=== PATIENT | female | born 1940 | race Caucasian/White ===

== ENCOUNTER 2018-03-31 21:49 | Emergency (ER) | payer MEDICARE, OTHER ==
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
[2018-03-31] MEDS ORDERED: HYDROcodone/Acetaminophen 5/325 mg Tablet ONE (23:54)
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
== END 2018-04-01 00:03 | disposition home or self-care (01) ==
LOC: ERS 21:49
DX: M54.6 Pain in thoracic spine (principal); I10 Essential (primary) hypertension; F41.9 Anxiety disorder, unspecified; F17.220 Nicotine dependence, chewing tobacco, uncomplicated; Y04.8XXA Assault by other bodily force, initial encounter
CPT/HCPCS: 70450; 72125; 72128; 72131

== ENCOUNTER 2018-11-09 17:13 | Observation (INO) | payer MEDICARE, OTHER ==
--- NOTE | 2018-11-09 18:36 | CT ---
Exam: Head CT without contrast HISTORY: Syncope COMPARISON: 03/31/2018 FINDINGS: Hemorrhage: No intraparenchymal hemorrhage or extra-axial hematoma. Brain parenchyma: Cortical smith-white matter differentiation is preserved. No mass effect or midline shift. Basilar cisterns are patent. Brain volume, age-appropriate. Chronic small vessel ischemic changes of the white matter are noted. Remote lacunar infarct in the anterior left scanlon radiata. Stable lucia cisterna magna Ventricular system: Ventricles and sulci are patent and symmetric. Calvarium: Intact. Sinuses and mastoid air cells: Bilateral sphenoid sinus disease. Adequate mastoid aeration. IMPRESSION: No acute intracranial process.
[2018-11-09] MEDS ORDERED: Ondansetron ODT 4 MG TAB PO PRN (20:41)
[2018-11-09] MEDS ORDERED: Ondansetron PF 4 MG/2 ML Vial IVP PRN (20:41)
[2018-11-09] MEDS ORDERED: Acetaminophen 325 MG TAB PO PRN (20:41)
[2018-11-09 21:24] VITALS: BMI 20.9
[2018-11-09] MEDS: Sodium Chloride 0.9% 1,000 ML IV SCH ×2 (21:59→22:30)
[2018-11-09] MEDS ORDERED: cefTRIAXone\\ROCEPHIN 1 GM in Sodium Chloride 0.9% 100 ML IVPB SCH (22:00)
--- NOTE | 2018-11-09 22:05 | HP ---
PRIMARY CARE DOCTOR: Norma Allan. CODE: Full code. TIME OF EVALUATION: 07:20 p.m. CHIEF COMPLAINT: Syncope. HISTORY OF PRESENT ILLNESS: This is a 78-year-old female patient with past medical history of hypertension came to the hospital after having an episode of syncope with no clear triggers, no alleviating factors. The patient reported that she was at home and all of a sudden she passed out. Her daughter put her on the sofa and she woke up couple of minutes later and she was back to normal. She describes no any other severe symptoms. It was reported that the daughter checked her heart rate at that time, it was around 160 to 170s. Symptoms were severe. REVIEW OF SYSTEMS: CONSTITUTIONAL: No fever, chills, or generalized weakness. RESPIRATORY: No cough, sputum production, or shortness of breath. CARDIOVASCULAR: No chest pain or palpitation. GASTROINTESTINAL: No nausea. No vomiting, diarrhea, or abdominal pain. GROUP MANAGING DIRECTOR: The patient had dizziness and syncope. No headache or feeling lightheaded. GENITOURINARY: No burning on urination. EXTREMITIES: No leg swelling. All other systems were reviewed and negative except for the findings mentioned above. PAST MEDICAL HISTORY: As mentioned in the HPI. PAST SURGICAL HISTORY: Appendectomy. PSYCH HISTORY: Anxiety. SOCIAL HISTORY: The patient drinks a beer every day. No drug use. Chews tobacco. FAMILY HISTORY: Reviewed and noncontributory for current presentation. KNOWN ALLERGIES: No known drug allergies. REPORTED MEDICATIONS: 1. Aspirin. 2. Carvedilol. 3. Vitamin D3. PHYSICAL EXAMINATION: VITAL SIGNS: On presentation, blood pressure 125/73 with heart rate 84, respiratory rate was 18, temperature 98.4. Pain was 0/10. Oxygen saturation was 97% on room air. GENERAL APPEARANCE: The patient is alert, oriented, no acute distress. HEENT: Eyes, normal conjunctivae. Moist oral mucosa. Anicteric. No JVD. RESPIRATORY: Bilateral air entry. No rales. No wheezing. Symmetric expansion. CARDIOVASCULAR: Normal rate and regular rhythm. No murmurs. No gallop. No edema. ABDOMEN: Soft. Normal bowel sounds. MUSCULOSKELETAL: Baseline range of motion. No sternal tenderness. SKIN: Warm, intact. No pallor. No rash. No redness. Peripheral pulses are present. Capillary refill seems to be intact. NEUROLOGIC: No evidence of any new focal weakness. Baseline speech. Cranial nerves seem to be intact. PSYCH: The patient is in good mood. No anxiety. Optimal judgment. IMAGING STUDIES: EKG was reviewed. The patient has a first-degree AV block at the rate of 79. Brain CT was done. The patient had no acute intracranial process. LABORATORY DATA: Reviewed. The patient has a white count of 10.8, hemoglobin 14.1, MCV 95.8, and platelet count 226. Coagulation: D-dimer was 0.6. Chemistry: Sodium 135, potassium 3.8, chloride 97, carbon dioxide 26, anion gap 16, BUN 11, creatinine 1.37 with GFR 37, glucose 172, lactic acid 2.9, calcium 9.6, magnesium 1.9, total bilirubin 0.8, AST 23, ALT 15, alkaline phosphatase 74, CK 61, troponin 0.024. Serum total protein 7.0, albumin 4.0, globulin 3.0, albumin-globulin ratio is 1.3. Urine was reviewed. The patient has positive urine with white count 11 to 20 with urine leukocyte esterase moderate. Urine ketones 15 and protein 30. ASSESSMENT AND PLAN: The patient has been placed in the hospital with following medical problems: 1. Syncope, unclear etiology. We will do echo, we will do carotid Doppler, we will monitor on tele. Further plan depending on result of initial workup. 2. Positive D-dimer. The patient has had D-dimer of 0.62. This could be secondary to DVT or PE. The patient has poor kidney function not ideal to do a CT angio, so we will do a V/Q in the morning since pulmonary embolism is in frequent etiology for syncope. 3. Hyponatremia, sodium 135, this is mild, no need for any acute intervention at this point. We will replace electrolytes as needed. 4. Acute kidney injury. The patient has an increase more than 0.3 mg/dL from previous admissions, creatinine is 1.37, previously it was 1.06. The patient could be little dehydrated. We will give some gentle hydration and recheck kidney function in the morning to make further adjustments, if not improving might need Nephrology for technical support assistant with the patient. 5. Urinary tract infection. The patient has white count 11 to 20. We will start the patient on Rocephin. We will send cultures and adjust treatment as per sensitivity. Job ID: [id number]
[2018-11-09 23:01] LABS: Troponin I 0.022 ng/mL (< 0.028)
[2018-11-10 01:47] LABS: #Eosinphils 0.2 thou/uL (0.0-0.7); #Lymphocytes 2.1 thou/uL (1.20-3.40); #Monocytes 0.7 thou/uL (0.11-0.59); #Neutrophils 4.8 thou/uL (1.40-6.50); %Basophils 0.4 % (0.0-1.0); %Eosinophils 2.2 % (0.0-10.0); %Lymphocytes 27.3 % (21.0-51.0); %Monocytes 8.2 % (0.0-10.0); %Neutrophils 61.8 % (42.0-75.0); Hemoglobin 11.3 g/dL (12.0-16.0); Mean Corpuscular HGB CONC 34.6 g/dL (32.0-36.0); Mean Corpuscular Hemoglobin 34.1 pg (27.0-31.0); Mean Corpuscular Volume 98.6 fL (78.0-98.0); Mean Platelet Volume 7.7 fL (7.4-10.4); Platelet Count 166 thou/uL (130-400); RBC Distribution Width 12.3 % (11.5-14.5); Red Blood Cell (RBC) Count 3.31 mill/uL (4.20-5.40); White Blood Cell (WBC) Count 7.8 thou/uL (4.8-10.8)
[2018-11-10 02:11] LABS: Troponin I 0.015 ng/mL (< 0.028)
[2018-11-10 02:19] LABS: Anion Gap 11 mmol/L (10-20); BUN (Urea Nitrogen) 9 mg/dL (9.8-20.1); Calc. Creatinine Clearance 46 mL/min (70-130); Calcium 8.9 mg/dL (7.8-10.44); Carbon Dioxide 23 mmol/L (23-31); Chloride 106 mmol/L (98-107); Estimated GFR-MDRD 75; Glucose 111 mg/dL (83-110); Potassium 3.7 mmol/L (3.5-5.1); Sodium 136 mmol/L (136-145)
--- NOTE | 2018-11-10 07:56 | ULT ---
US Carotid Doppler STANDARD History: [Syncope] Comparison: Ultrasound carotid Doppler 2016 Findings: Real-time grayscale, color, and spectral analysis of the extracranial carotid and vertebral arteries was performed. Antegrade flow both vertebral arteries. No elevated peak systolic velocities within the internal mtz tid arteries. Right ICA/CCA ratio is 0.92 and left ICA/CCA ratio is 1.04. Impression: No hemodynamically significant stenosis.
[2018-11-10] MEDS ORDERED: Enoxaparin Sodium 30 MG/0.3 ML SYRINGE SC SCH (09:00)
[2018-11-10] MEDS: Sodium Chloride 0.9% 1,000 ML IV SCH (11:15)
--- NOTE | 2018-11-10 12:00 | NM ---
NUCLEAR MEDICINE LUNG VENTILATORY AND PERFUSION EVALUATION INDICATION: Rule out pulmonary embolus Radiopharmaceutical: Ventilation: 11.4 mCi xenon-133 inhaled. Perfusion: 6.1 mCi technetium 99m MAA IV. COMPARISON: Chest radiograph dated November 09, 2018 FINDINGS: Ventilation: There is some patchy areas of diminished ventilation involving the left lower lobe and p atchy areas within the right midlung.. Perfusion: There are nonsegmental patchy areas of diminished perfusion involving the right midlung an d left lower lobe that are predominantly matched. Mismatch: No mismatched ventilatory or perfusion abnormality is demonstrated. Additional findings: None IMPRESSION: Low probability VQ scan for PE.
[2018-11-10 12:28] VITALS: BP 159/72; TEMP 98.3
--- NOTE | 2018-11-10 13:50 | PDOC.PN ---
- Subjective Encounter Start Date: 11/10/18 Encounter Start Time: 09:00 Subjective: feels better, no sob or chest pain or palp -: 2 daughters at bedside - Objective Resuscitation Status - Order Detail: 11/09/18 20:41 Resuscitation Status Routine Resuscitation Status: FULL: Full Resuscitation MAR Reviewed: Yes Vital Signs & Weight: Vital Signs (12 hours) Temp Pulse Resp BP BP BP BP 11/10/18 11:45 98.3 F 64 16 159/72 H 11/10/18 08:08 98.5 F 75 16 158/71 H 148/70 H 148/69 H 11/10/18 03:05 66 18 122/58 L Pulse Ox 11/10/18 11:45 96 11/10/18 08:08 96 11/10/18 03:05 98 Weight Weight 103 lb 14.4 oz I&O: 11/09/18 11/10/18 11/11/18 06:59 06:59 06:59 Intake Total 931 Balance 931 Result Diagrams: 11/10/18 01:38 11/10/18 01:38 Phys Exam - Physical Examination HEENT: PERRLA, moist MMs Neck: no JVD, supple Respiratory: no wheezing, no rales Cardiovascular: RRR, no significant murmur Gastrointestinal: soft, non-tender, positive bowel sounds Musculoskeletal: no edema, pulses present Neurological: non-focal, moves all 4 limbs 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 Psychiatric: normal affect, A&O x 3 Dx/Plan (1) Syncope Code(s): R55 - SYNCOPE AND COLLAPSE Status: Acute Qualifiers: Syncope type: vasovagal syncope Qualified Code(s): R55 - Syncope and collapse (2) HTN (hypertension) Code(s): I10 - ESSENTIAL (PRIMARY) HYPERTENSION Status: Chronic Qualifiers: Hypertension type: essential hypertension Qualified Code(s): I10 - Essential (primary) hypertension (3) Chronic anemia Code(s): D64.9 - ANEMIA, UNSPECIFIED Status: Chronic - Plan hemostable -: all imaging results are -ve and given full updates to family/pt -: dc pt home -: to hydrate well at home, f/u with PCP in 1 week -: 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 Review of Systems - Medications/Allergies Allergies/Adverse Reactions: Allergies Allergy/AdvReac Type Severity Reaction Status Date / Time No Known Drug Allergies Allergy Verified 11/09/18 22:56 Medications: Current Medications Acetaminophen (Tylenol) 650 mg PO Q4H PRN PRN Reason: Headache/Fever/Mild Pain (1-3) Enoxaparin Sodium (Lovenox) 30 mg SC 0900 [facility] Last Admin: 11/10/18 09:06 Dose: 30 mg Sodium Chloride (Normal Saline 0.9%) 1,000 mls @ 75 mls/hr IV .[id number] [facility] Last Admin: 11/10/18 11:15 Dose: Not Given Ceftriaxone Sodium 1 gm/ (Sodium Chloride) 100 mls @ 200 mls/hr IVPB 1600 INGRID Ondansetron HCl (Zofran Odt) 4 mg PO Q6H PRN PRN Reason: Nausea/Vomiting Ondansetron HCl (Zofran) 4 mg IVP Q6H PRN PRN Reason: Nausea/Vomiting
[2018-11-10] MEDS ORDERED: cefTRIAXone\\ROCEPHIN 1 GM in Sodium Chloride 0.9% 100 ML IVPB SCH (16:00)
--- NOTE | 2018-11-11 14:32 | DIS ---
DATE OF ADMISSION: 11/09/2018 DATE OF DISCHARGE: 11/10/2018 DISCHARGE DISPOSITION: To home. PRIMARY DISCHARGE DIAGNOSES: 1. Syncope, resolved. 2. Hypertension. 3. Chronic anemia. PROCEDURES DONE DURING HOSPITALIZATION: CT brain done showed no acute intracranial process. Ultrasound of carotids showed no hemodynamically significant stenosis. V/Q scan showed low probability for PE. Echo with 2D Doppler done showed EF of 50% to 55%, moderate mitral regurgitation. Aortic valve was sclerotic. H and H of 11 and 32, platelet count 166, and MCV 98. BUN and creatinine 9 and 0.7. Troponin x3 is negative. DISCHARGE MEDICATIONS: 1. Aspirin 81 mg p.o. daily. 2. Vitamin D3 of 2000 units p.o. daily. 3. Vitamin B12 of 5000 mcg p.o. daily. 4. Cardizem CD 180 mg p.o. daily. 5. Ciprofloxacin 500 mg p.o. twice daily for another 4 days for suspected UTI. BRIEF COURSE DURING HOSPITALIZATION: The patient initially was brought to emergency room on the by family memers after she passed out. She had multiple workups done for syncope as described above. The patient had mild tachycardia at home, but telemetry has not revealed any arrhythmias here. CT brain, ultrasound carotids , and V/Q scan all of which have been within normal limits. Her initial UA revealed suspicion for UTI, but cultures have not grown any organism. She has remained hemodynamically stable, ambulating and eating well prior to discharge. She needs to follow up with her primary care physician in 1 week. The family did mention that she has been progressively losing weight and needs further workup via primary care physician. Please see a [id number] documentation for the day of discharge on [employer]. Job ID: [id number] [facility]
--- NOTE | 2018-11-16 15:30 | EKG ---
Test Reason : Blood Pressure : / mmHG Vent. Rate : 079 BPM Atrial Rate : 079 BPM P-R Int : 230 ms QRS Dur : 064 ms QT Int : 398 ms P-R-T Axes : 068 019 025 degrees QTc Int : 456 ms Sinus rhythm with 1st degree A-V block Otherwise normal ECG Confirmed by MARIAA GERMAN, JENN ([id number]), editor house organ LUCI CHAUDHRY ([id number]) on 11/16/2018 3:30:24 PM Referred By: Confirmed By:JENN LEROY MD
== END 2018-11-10 14:36 | disposition home or self-care (01) ==
LOC: ERS 17:13 → 2SW 18:15
PROVIDERS: ADMIT Internal Medicine; ATTEND Internal Medicine
DX: R55 Syncope and collapse (principal); I10 Essential (primary) hypertension; F17.220 Nicotine dependence, chewing tobacco, uncomplicated; F41.9 Anxiety disorder, unspecified; I44.0 Atrioventricular block, first degree; E87.1 Hypo-osmolality and hyponatremia; N17.9 Acute kidney failure, unspecified; D64.9 Anemia, unspecified; Z79.82 Long term (current) use of aspirin; Z79.899 Other long term (current) drug therapy
CPT/HCPCS: 70450; 78582; 80048; 83735; 84484 ×2; 85025; 93005; 93306; 93880; 96360; 96361 ×2; 96372; 99285; A9540; A9558; G0378 ×2; 36415; J1650

== ENCOUNTER 2020-11-17 17:51 | Inpatient (IN) | payer MEDICARE, OTHER ==
[2020-11-17 18:32] LABS: #Lymphocytes 0.6 thou/uL (1.20-3.40); #Monocytes 0.6 thou/uL (0.11-0.59); #Neutrophils 7.8 thou/uL (1.40-6.50); %Basophils 0.2 % (0.0-1.0); %Lymphocytes 6.3 % (21.0-51.0); %Monocytes 6.4 % (0.0-10.0); %Neutrophils 87.1 % (42.0-75.0); Mean Corpuscular HGB CONC 35.4 g/dL (32.0-36.0); Mean Corpuscular Hemoglobin 33.7 pg (27.0-31.0); Mean Platelet Volume 8.6 fL (7.4-10.4); Platelet Count 103 thou/uL (130-400); Red Blood Cell (RBC) Count 4.74 mill/uL (4.20-5.40)
[2020-11-17 18:47] LABS: Platelet Morphology Comment Appears Decreased; RBC Morphology Normal
[2020-11-17 18:59] LABS: ALT (SGPT) 16 U/L (8-55); AST (SGOT) 32 U/L (5-34); Albumin 3.7 g/dL (3.4-4.8); Alkaline Phosphatase 65 U/L (40-110); Anion Gap 19 mmol/L (10-20); BUN (Urea Nitrogen) 16 mg/dL (9.8-20.1); Bilirubin, Total 0.5 mg/dL (0.2-1.2); CK (CPK) 117 U/L (29-168); Calc. Creatinine Clearance 0 mL/min (70-130); Calcium 8.9 mg/dL (7.8-10.44); Carbon Dioxide 17 mmol/L (23-31); Chloride 96 mmol/L (98-107); Globulin 3.1 g/dL (2.4-3.5); Glucose 135 mg/dL (83-110); Magnesium 1.9 mg/dL (1.6-2.6); Potassium 3.3 mmol/L (3.5-5.1); Protein, Total 6.8 g/dL (5.8-8.1); Sodium 129 mmol/L (136-145)
[2020-11-17 19:20] LABS: Bacteria/HPF None Seen HPF (None Seen); Bilirubin Negative (Negative); Blood, Urine Trace (Negative); Clarity Turbid (Clear); Glucose, Urine (Dipstick) Normal (Negative); Ketone, Urine 40 mg/dL (Negative); Leukocyte Negative Leu/uL (Negative); Nitrite Negative (Negative); Protein, Urine (Dipstick) 70 mg/dL (Neg-Trace); RBC/HPF 0-3 HPF (0-3); Specific Gravity, Urine 1.014 (1.002-1.036); Squamous Epithelial None Seen HPF (0-3); Urobilinogen Normal mg/dL (Less than 2); WBC/HPF 0-3 HPF (0-3); pH, Urine 6.5 (5.0-9.0)
[2020-11-17 20:00] LABS: CKMB 3.1 ng/mL (0-6.6)
[2020-11-17] MEDS ORDERED: Magnesium 2 GM/50 ML BAG (IN WATER) ONE (22:09)
[2020-11-17] MEDS ORDERED: Potassium Chloride 20 MEQ in Premix Bag 1 BAG IVPB SCH (23:00)
[2020-11-17 23:04] LABS: Troponin I 0.479 ng/mL (< 0.028)
[2020-11-17] MEDS ORDERED: NS 0.9% w/ 40 MEQ KCL 1,000 ML IV SCH (23:15)
[2020-11-17] MEDS ORDERED: Aspirin Chewable 81 MG TAB ONE (23:19)
[2020-11-18] MEDS ORDERED: Ondansetron PF 4 MG/2 ML Vial IVP PRN (00:12)
[2020-11-18] MEDS: Acetaminophen 325 MG TAB PO PRN ×3 (00:36→20:35)
[2020-11-18] MEDS: Sodium Chloride 0.9% 1,000 ML IV SCH ×3 (00:39→17:27)
[2020-11-18 01:30] LABS: Critical Call Chem Troponin I RESULT DECREASING; Troponin I 0.465 ng/mL (< 0.028)
[2020-11-18] MEDS ORDERED: Diltiazem 125 MG in Sodium Chloride 0.9% 100 ML IVPB SCH (02:00)
[2020-11-18 02:10] LABS: SARS-CoV-2 NAA Rapid Test DETECTED (NotDetected)
[2020-11-18 05:53] LABS: #Lymphocytes 0.9 thou/uL (1.20-3.40); #Monocytes 0.5 thou/uL (0.11-0.59); #Neutrophils 2.8 thou/uL (1.40-6.50); %Basophils 0.7 % (0.0-1.0); %Eosinophils 0.2 % (0.0-10.0); %Lymphocytes 21.5 % (21.0-51.0); %Monocytes 11.9 % (0.0-10.0); %Neutrophils 65.7 % (42.0-75.0); Hemoglobin 12.9 g/dL (12.0-16.0); Mean Corpuscular HGB CONC 34.4 g/dL (32.0-36.0); Mean Corpuscular Hemoglobin 32.9 pg (27.0-31.0); Mean Corpuscular Volume 95.6 fL (78.0-98.0); Mean Platelet Volume 8.7 fL (7.4-10.4); Platelet Count 91 thou/uL (130-400); RBC Distribution Width 11.7 % (11.5-14.5); Red Blood Cell (RBC) Count 3.91 mill/uL (4.20-5.40); White Blood Cell (WBC) Count 4.3 thou/uL (4.8-10.8)
[2020-11-18 06:03] LABS: Anion Gap 13 mmol/L (10-20); BUN (Urea Nitrogen) 13 mg/dL (9.8-20.1); Calc. Creatinine Clearance 35 mL/min (70-130); Calcium 7.9 mg/dL (7.8-10.44); Carbon Dioxide 20 mmol/L (23-31); Chloride 104 mmol/L (98-107); Glucose 91 mg/dL (83-110); Potassium 3.6 mmol/L (3.5-5.1); Sodium 133 mmol/L (136-145)
[2020-11-18] MEDS: Aspirin 81 mg Enteric Coated Tablet PO SCH (08:35)
[2020-11-18] MEDS: Diltiazem HCl SR 60 mg Capsule PO SCH (08:35)
[2020-11-18] MEDS: Thiamine 100 MG TAB PO SCH (08:35)
[2020-11-18] MEDS: Folic Acid 1 MG TAB PO SCH (08:35)
[2020-11-18] MEDS ORDERED: Lisinopril 10 MG TAB PO SCH (12:30)
[2020-11-18] MEDS ORDERED: Digoxin 0.5 MG/2 ML AMP ONE (16:51)
[2020-11-18] MEDS: Diltiazem 125 MG in Sodium Chloride 0.9% 100 ML IVPB SCH (16:58)
[2020-11-18] MEDS: Digoxin 0.5 MG/2 ML AMP SLOW IVP SCH (17:00)
[2020-11-18] MEDS: Atorvastatin Calcium 10 MG TAB PO SCH (19:58)
[2020-11-19] MEDS: Digoxin 0.5 MG/2 ML AMP SLOW IVP SCH ×2 (00:14→05:49)
[2020-11-19 05:35] LABS: #Lymphocytes 1.1 thou/uL (1.20-3.40); #Monocytes 0.4 thou/uL (0.11-0.59); #Neutrophils 4.4 thou/uL (1.40-6.50); %Basophils 0.5 % (0.0-1.0); %Eosinophils 0.2 % (0.0-10.0); %Lymphocytes 17.8 % (21.0-51.0); %Monocytes 7.2 % (0.0-10.0); %Neutrophils 74.3 % (42.0-75.0); Hemoglobin 14.4 g/dL (12.0-16.0); Mean Corpuscular HGB CONC 33.7 g/dL (32.0-36.0); Mean Corpuscular Hemoglobin 32.5 pg (27.0-31.0); Mean Corpuscular Volume 96.4 fL (78.0-98.0); Mean Platelet Volume 8.8 fL (7.4-10.4); Platelet Count 96 thou/uL (130-400); RBC Distribution Width 11.8 % (11.5-14.5); Red Blood Cell (RBC) Count 4.43 mill/uL (4.20-5.40); White Blood Cell (WBC) Count 5.9 thou/uL (4.8-10.8)
[2020-11-19 05:37] LABS: Anion Gap 12 mmol/L (10-20); BUN (Urea Nitrogen) 6 mg/dL (9.8-20.1); Calc. Creatinine Clearance 44 mL/min (70-130); Calcium 8.1 mg/dL (7.8-10.44); Carbon Dioxide 22 mmol/L (23-31); Chloride 100 mmol/L (98-107); Glucose 83 mg/dL (83-110); Sodium 131 mmol/L (136-145)
[2020-11-19] MEDS: Acetaminophen 325 MG TAB PO PRN ×2 (05:49→16:29)
[2020-11-19 05:58] LABS: Potassium 2.8 mmol/L (3.5-5.1)
[2020-11-19] MEDS ORDERED: Potassium Chloride 40 MEQ in Premix Bag 1 BAG IVPB SCH (06:30)
[2020-11-19] MEDS ORDERED: Potassium Chloride 20 MEQ TAB PO SCH (06:30)
[2020-11-19] MEDS: Diltiazem 125 MG in Sodium Chloride 0.9% 100 ML IVPB SCH (06:32)
[2020-11-19] MEDS: Sodium Chloride 0.9% 1,000 ML IV SCH ×2 (07:25→20:23)
[2020-11-19] MEDS: Aspirin Chewable 81 MG TAB PO SCH (07:41)
[2020-11-19] MEDS: Thiamine 100 MG TAB PO SCH (07:41)
[2020-11-19] MEDS: Diltiazem HCl SR 60 mg Capsule PO SCH (07:41)
[2020-11-19] MEDS: Lisinopril 20 MG TAB PO SCH (07:41)
[2020-11-19] MEDS: Potassium Chloride 20 MEQ in Premix Bag 1 BAG IVPB SCH ×2 (07:41→10:05)
[2020-11-19] MEDS: Folic Acid 1 MG TAB PO SCH (07:41)
[2020-11-19] MEDS: Digoxin 0.125 MG TAB PO SCH (10:04)
[2020-11-19] MEDS: Aspirin 81 mg Enteric Coated Tablet PO SCH (10:05)
[2020-11-19] MEDS ORDERED: Diltiazem 125 MG in Sodium Chloride 0.9% 100 ML IVPB SCH (11:05)
[2020-11-19] MEDS ORDERED: Magnesium Sulfate 3 GM in Sodium Chloride 0.9% 100 ML IVPB SCH (13:00)
[2020-11-19] MEDS: Atorvastatin Calcium 10 MG TAB PO SCH (20:23)
[2020-11-20 05:38] LABS: #Lymphocytes 1.1 thou/uL (1.20-3.40); #Monocytes 0.4 thou/uL (0.11-0.59); #Neutrophils 4.2 thou/uL (1.40-6.50); %Basophils 0.6 % (0.0-1.0); %Monocytes 7.4 % (0.0-10.0); Hemoglobin 14.5 g/dL (12.0-16.0); Mean Corpuscular HGB CONC 34.2 g/dL (32.0-36.0); Mean Corpuscular Hemoglobin 32.4 pg (27.0-31.0); Mean Corpuscular Volume 94.8 fL (78.0-98.0); Mean Platelet Volume 8.2 fL (7.4-10.4); Platelet Count 110 thou/uL (130-400); RBC Distribution Width 11.7 % (11.5-14.5); Red Blood Cell (RBC) Count 4.47 mill/uL (4.20-5.40); White Blood Cell (WBC) Count 5.8 thou/uL (4.8-10.8)
[2020-11-20 05:51] LABS: Anion Gap 11 mmol/L (10-20); BUN (Urea Nitrogen) 5 mg/dL (9.8-20.1); Calc. Creatinine Clearance 48 mL/min (70-130); Calcium 8.3 mg/dL (7.8-10.44); Carbon Dioxide 24 mmol/L (23-31); Chloride 97 mmol/L (98-107); Glucose 79 mg/dL (83-110); Potassium 3.3 mmol/L (3.5-5.1); Sodium 129 mmol/L (136-145)
[2020-11-20] MEDS ORDERED: Potassium Chloride 20 MEQ TAB PO SCH (09:15)
[2020-11-20] MEDS: Aspirin 81 mg Enteric Coated Tablet PO SCH (09:36)
[2020-11-20] MEDS: Aspirin Chewable 81 MG TAB PO SCH (09:53)
[2020-11-20] MEDS: Folic Acid 1 MG TAB PO SCH (09:53)
[2020-11-20] MEDS: Thiamine 100 MG TAB PO SCH (09:53)
[2020-11-20] MEDS: Digoxin 0.125 MG TAB PO SCH (09:53)
[2020-11-20] MEDS: Lisinopril 20 MG TAB PO SCH (09:53)
[2020-11-20] MEDS: Diltiazem HCl SR 60 mg Capsule PO SCH (09:53)
[2020-11-20 11:01] LABS: Lactic Acid 1.4 mmol/L (0.5-2.2)
[2020-11-20] MEDS ORDERED: Enoxaparin Sodium 40 MG/0.4 ML SYRINGE SC SCH (11:15)
[2020-11-20] MEDS ORDERED: Iopamidol-370 76% 500 ML 1 ML ONE (12:46)
[2020-11-20] MEDS: Acetaminophen 325 MG TAB PO PRN (17:36)
[2020-11-20] MEDS ORDERED: cefTRIAXone\\ROCEPHIN 1 GM in Sodium Chloride 0.9% 100 ML IVPB SCH (18:00)
[2020-11-20] MEDS: Atorvastatin Calcium 10 MG TAB PO SCH (20:37)
[2020-11-20] MEDS: cefTRIAXone\\ROCEPHIN 1 GM in Sodium Chloride 0.9% 100 ML IVPB SCH (20:38)
[2020-11-20] MEDS: Enoxaparin Sodium 40 MG/0.4 ML SYRINGE SC SCH (20:38)
[2020-11-21] MEDS: Acetaminophen 325 MG TAB PO PRN ×3 (03:32→21:34)
[2020-11-21] MEDS: Aspirin 81 mg Enteric Coated Tablet PO SCH (07:29)
[2020-11-21] MEDS: Lisinopril 20 MG TAB PO SCH (09:37)
[2020-11-21] MEDS: Digoxin 0.125 MG TAB PO SCH (09:37)
[2020-11-21] MEDS: Aspirin Chewable 81 MG TAB PO SCH (09:37)
[2020-11-21] MEDS: Diltiazem HCl SR 60 mg Capsule PO SCH (09:37)
[2020-11-21] MEDS: Thiamine 100 MG TAB PO SCH (09:37)
[2020-11-21] MEDS: Folic Acid 1 MG TAB PO SCH (09:38)
[2020-11-21] MEDS: Enoxaparin Sodium 40 MG/0.4 ML SYRINGE SC SCH (09:38)
[2020-11-21 10:02] LABS: Anion Gap 12 mmol/L (10-20); BUN (Urea Nitrogen) 12 mg/dL (9.8-20.1); Calc. Creatinine Clearance 35 mL/min (70-130); Carbon Dioxide 28 mmol/L (23-31); Chloride 95 mmol/L (98-107); Glucose 93 mg/dL (83-110); Potassium 3.7 mmol/L (3.5-5.1); Sodium 131 mmol/L (136-145)
[2020-11-21] MEDS: Atorvastatin Calcium 10 MG TAB PO SCH (21:33)
[2020-11-21] MEDS: cefTRIAXone\\ROCEPHIN 1 GM in Sodium Chloride 0.9% 100 ML IVPB SCH (21:33)
[2020-11-21] MEDS: Apixaban 5 MG TAB PO SCH (21:33)
[2020-11-22 06:09] LABS: Hemoglobin 14.3 g/dL (12.0-16.0); Platelet Count 184 thou/uL (130-400)
[2020-11-22 06:27] LABS: Anion Gap 11 mmol/L (10-20); BUN (Urea Nitrogen) 12 mg/dL (9.8-20.1); Calc. Creatinine Clearance 39 mL/min (70-130); Calcium 9.4 mg/dL (7.8-10.44); Carbon Dioxide 25 mmol/L (23-31); Chloride 97 mmol/L (98-107); Glucose 91 mg/dL (83-110); Potassium 3.3 mmol/L (3.5-5.1); Sodium 130 mmol/L (136-145)
[2020-11-22] MEDS ORDERED: Potassium Chloride 20 MEQ TAB PO SCH (07:45)
[2020-11-22] MEDS: Apixaban 5 MG TAB PO SCH ×2 (10:22→22:02)
[2020-11-22] MEDS: Aspirin Chewable 81 MG TAB PO SCH (10:23)
[2020-11-22] MEDS: Lisinopril 20 MG TAB PO SCH (10:23)
[2020-11-22] MEDS: Diltiazem HCl SR 60 mg Capsule PO SCH ×2 (10:23→22:02)
[2020-11-22] MEDS: Folic Acid 1 MG TAB PO SCH (10:23)
[2020-11-22] MEDS: Digoxin 0.125 MG TAB PO SCH (10:23)
[2020-11-22] MEDS: Thiamine 100 MG TAB PO SCH (10:24)
[2020-11-22] MEDS: Aspirin 81 mg Enteric Coated Tablet PO SCH (11:10)
[2020-11-22] MEDS ORDERED: Magnesium 2 GM/50 ML 2 GM in Premix Bag 1 BAG IVPB SCH (16:15)
[2020-11-22] MEDS: Atorvastatin Calcium 10 MG TAB PO SCH (22:02)
[2020-11-22] MEDS: cefTRIAXone\\ROCEPHIN 1 GM in Sodium Chloride 0.9% 100 ML IVPB SCH (22:03)
[2020-11-23] MEDS: Lisinopril 20 MG TAB PO SCH (07:29)
[2020-11-23] MEDS: Aspirin 81 mg Enteric Coated Tablet PO SCH (07:30)
[2020-11-23] MEDS: Diltiazem HCl SR 60 mg Capsule PO SCH ×2 (07:30→20:56)
[2020-11-23] MEDS: Apixaban 5 MG TAB PO SCH ×2 (07:30→20:56)
[2020-11-23] MEDS: Thiamine 100 MG TAB PO SCH (07:30)
[2020-11-23] MEDS: Folic Acid 1 MG TAB PO SCH (07:30)
[2020-11-23 11:38] LABS: Anion Gap 11 mmol/L (10-20); BUN (Urea Nitrogen) 13 mg/dL (9.8-20.1); Calc. Creatinine Clearance 34 mL/min (70-130); Calcium 9.2 mg/dL (7.8-10.44); Carbon Dioxide 28 mmol/L (23-31); Chloride 97 mmol/L (98-107); Glucose 118 mg/dL (83-110); Potassium 3.5 mmol/L (3.5-5.1); Sodium 132 mmol/L (136-145)
[2020-11-23] MEDS: Cefdinir 300 MG CAP PO SCH (19:00)
[2020-11-23] MEDS: Atorvastatin Calcium 10 MG TAB PO SCH (20:57)
[2020-11-24 05:35] LABS: Magnesium 1.7 mg/dL (1.6-2.6); Potassium 3.4 mmol/L (3.5-5.1)
[2020-11-24] MEDS: Cefdinir 300 MG CAP PO SCH ×2 (05:59→16:11)
[2020-11-24 09:33] LABS: Sodium 135 mmol/L (136-145)
[2020-11-24] MEDS: Diltiazem HCl SR 60 mg Capsule PO SCH (10:12)
[2020-11-24] MEDS: Folic Acid 1 MG TAB PO SCH (10:12)
[2020-11-24] MEDS: Lisinopril 20 MG TAB PO SCH (10:12)
[2020-11-24] MEDS: Aspirin 81 mg Enteric Coated Tablet PO SCH (10:12)
[2020-11-24] MEDS: Thiamine 100 MG TAB PO SCH (10:12)
[2020-11-24] MEDS: Apixaban 5 MG TAB PO SCH (10:12)
[2020-11-24 13:05] VITALS: TEMP 97.9
[2020-11-24 13:30] VITALS: BMI 17.7
[2020-11-24] MEDS ORDERED: Potassium Chloride 20 MEQ TAB PO SCH (15:00)
[2020-11-24 16:34] VITALS: BP 134/64
[2020-11-29] MEDS ORDERED: Apixaban 5 MG TAB PO SCH (09:00)
== END 2020-11-24 18:40 | disposition home or self-care (01) | DRG 871 ==
LOC: ERS 17:51 → 2NO 21:59 → 2SW 11-18 04:01
PROVIDERS: ADMIT Internal Medicine; ATTEND Internal Medicine
PROC: 8E0ZXY6 Isolation (ICD-10-PCS; principal; 2020-11-17)
DX: A41.9 Sepsis, unspecified organism (principal); U07.1 COVID-19; I21.A1 Myocardial infarction type 2; I26.99 Other pulmonary embolism without acute cor pulmonale; J12.82 Pneumonia due to coronavirus disease 2019; I46.9 Cardiac arrest, cause unspecified; I48.92 Unspecified atrial flutter; N17.9 Acute kidney failure, unspecified; E87.1 Hypo-osmolality and hyponatremia; I47.1 Supraventricular tachycardia; J90 Pleural effusion, not elsewhere classified; N39.0 Urinary tract infection, site not specified; I10 Essential (primary) hypertension; F10.10 Alcohol abuse, uncomplicated; E87.6 Hypokalemia; F03.90 Unspecified dementia, unspecified severity, without behavioral disturbance, psychotic disturbance, mood disturbance, and anxiety; E78.00 Pure hypercholesterolemia, unspecified; D69.6 Thrombocytopenia, unspecified; F17.220 Nicotine dependence, chewing tobacco, uncomplicated; E83.42 Hypomagnesemia; Z79.82 Long term (current) use of aspirin; Z90.49 Acquired absence of other specified parts of digestive tract
CPT/HCPCS: 36415; 51701; 71045; 71275; 80048; 80053; 80307; 81003; 81015; 82550; 82553; 83605; 83735; 83930; 83935; 84132; 84295; 84300; 84443; 84484; 85014; 85018; 85025; 85049; 85379; 87040; 87086; 93005; 93010; 93306; 96365; 96375; J0696; J1160; J1650; J3475; J3480; J3490; Q9967; U0002; U0005

== ENCOUNTER 2021-04-06 22:40 | Emergency (ER) | payer MEDICARE, OTHER ==
[2021-04-06 23:58] LABS: #Basophils 0.1 thou/uL (0.0-0.2); #Eosinphils 0.1 thou/uL (0.0-0.7); #Lymphocytes 1.4 thou/uL (1.20-3.40); #Monocytes 0.2 thou/uL (0.11-0.59); #Neutrophils 9.1 thou/uL (1.40-6.50); %Basophils 0.5 % (0.0-1.0); %Eosinophils 0.5 % (0.0-10.0); %Lymphocytes 12.9 % (21.0-51.0); %Monocytes 1.9 % (0.0-10.0); %Neutrophils 84.2 % (42.0-75.0); Hemoglobin 12.8 g/dL (12.0-16.0); Mean Corpuscular HGB CONC 34.8 g/dL (32.0-36.0); Mean Corpuscular Hemoglobin 33.3 pg (27.0-31.0); Mean Corpuscular Volume 95.4 fL (78.0-98.0); Mean Platelet Volume 7.8 fL (7.4-10.4); Platelet Count 168 thou/uL (130-400); RBC Distribution Width 12.8 % (11.5-14.5); Red Blood Cell (RBC) Count 3.86 mill/uL (4.20-5.40); White Blood Cell (WBC) Count 10.8 thou/uL (4.8-10.8)
[2021-04-07 00:09] LABS: INR-International Normal Ratio 1.1; Prothrombin Time 14.6 sec (12.0-14.7)
[2021-04-07 00:10] LABS: PTT 30.7 sec (22.9-36.1)
[2021-04-07 00:19] LABS: ALT (SGPT) 19 U/L (8-55); AST (SGOT) 27 U/L (5-34); Albumin 4.3 g/dL (3.4-4.8); Alcohol 227 mg/dL (Less than 10); Alkaline Phosphatase 68 U/L (40-110); Anion Gap 18 mmol/L (10-20); BUN (Urea Nitrogen) 11 mg/dL (9.8-20.1); Bilirubin, Total 0.9 mg/dL (0.2-1.2); Calc. Creatinine Clearance 0 mL/min (70-130); Calcium 9.1 mg/dL (7.8-10.44); Carbon Dioxide 20 mmol/L (23-31); Chloride 91 mmol/L (98-107); Globulin 3.2 g/dL (2.4-3.5); Glucose 85 mg/dL (83-110); Potassium 3.6 mmol/L (3.5-5.1); Protein, Total 7.5 g/dL (5.8-8.1); Sodium 125 mmol/L (136-145)
[2021-04-07] MEDS ORDERED: Lidocaine 1% (PF) 30 ML VIAL ONE (00:27)
== END 2021-04-07 01:43 | disposition home or self-care (01) ==
LOC: ERS 22:40
DX: S52.572A Other intraarticular fracture of lower end of left radius, initial encounter for closed fracture (principal); I48.91 Unspecified atrial fibrillation; E78.5 Hyperlipidemia, unspecified; I10 Essential (primary) hypertension; F17.220 Nicotine dependence, chewing tobacco, uncomplicated; Z79.01 Long term (current) use of anticoagulants; Z79.899 Other long term (current) drug therapy; W18.11XA Fall from or off toilet without subsequent striking against object, initial encounter
CPT/HCPCS: 25605; 36415; 70450; 72125; 80053; 80307; 84484; 85025; 85610; 85730; 93005; 96374; J2001

== ENCOUNTER 2022-08-26 20:05 | Inpatient (IN) | payer MEDICARE, OTHER ==
[~2022-08-26 20:05] MED LIST: Iopamidol-370 76% 500 ML 1 ML ONE
[2022-08-26 21:24] LABS: #Basophils 0.1 thou/uL (0.0-0.2); #Eosinphils 0.2 thou/uL (0.0-0.7); #Monocytes 0.6 thou/uL (0.11-0.59); #Neutrophils 5.6 thou/uL (1.40-6.50); %Basophils 1.1 % (0.0-1.0); %Eosinophils 2.1 % (0.0-10.0); %Lymphocytes 23.9 % (21.0-51.0); %Monocytes 6.7 % (0.0-10.0); %Neutrophils 66.2 % (42.0-75.0); Hemoglobin 12.5 g/dL (12.0-16.0); Mean Corpuscular HGB CONC 34.5 g/dL (32.0-36.0); Mean Corpuscular Hemoglobin 34.7 pg (27.0-31.0); Mean Platelet Volume 8.2 fL (7.4-10.4); Platelet Count 142 10x3/uL (130-400); RBC Distribution Width 11.6 % (11.5-14.5); Red Blood Cell (RBC) Count 3.61 mill/uL (4.20-5.40); White Blood Cell (WBC) Count 8.4 10x3/uL (4.8-10.8)
[2022-08-26 21:45] LABS: ALT (SGPT) 12 U/L (8-55); AST (SGOT) 26 U/L (5-34); Albumin 4.1 g/dL (3.4-4.8); Alkaline Phosphatase 60 U/L (40-110); Anion Gap 17 mmol/L (10-20); BUN (Urea Nitrogen) 7 mg/dL (9.8-20.1); Bilirubin, Total 0.7 mg/dL (0.2-1.2); Calc. Creatinine Clearance 0 mL/min (70-130); Calcium 8.8 mg/dL (7.8-10.44); Carbon Dioxide 20 mmol/L (23-31); Chloride 96 mmol/L (98-107); Estimated GFR 79; Globulin 2.8 g/dL (2.4-3.5); Glucose 66 mg/dL (83-110); Potassium 3.5 mmol/L (3.5-5.1); Protein, Total 6.9 g/dL (5.8-8.1); Sodium 129 mmol/L (136-145)
[2022-08-26] MEDS ORDERED: Diltiazem 125 MG/25 ML ONE (23:32)
[2022-08-26] MEDS ORDERED: Magnesium 2 GM/50 ML BAG (IN WATER) ONE (23:38)
[2022-08-27 00:40] LABS: Acetaminophen Less than 10.0 mcg/mL (10.0-30.0); Alcohol 73 mg/dL (Less than 10); Salicylate Less than 8.0 mg/dL (15.0-30.0)
[2022-08-27 00:41] LABS: Magnesium 2.6 mg/dL (1.6-2.6)
[2022-08-27] MEDS ORDERED: Magnesium 2 GM/50 ML BAG (IN WATER) ONE (00:46)
[2022-08-27] MEDS ORDERED: Ondansetron PF 4 MG/2 ML Vial IVP PRN (01:22)
[2022-08-27] MEDS ORDERED: traMADol HCl 50 MG TAB PO PRN (01:45)
[2022-08-27] MEDS ORDERED: Electrolyte Replacement Protocol FS SCH (01:45)
[2022-08-27] MEDS ORDERED: Lorazepam 2 MG/ML VIAL IM PRN (01:45)
[2022-08-27] MEDS ORDERED: Lorazepam 1 MG TAB PO PRN (01:45)
[2022-08-27] MEDS ORDERED: Potassium Chloride 20 MEQ TAB PO SCH (05:00)
[2022-08-27 05:16] LABS: #Eosinphils 0.1 thou/uL (0.0-0.7); #Lymphocytes 1.7 thou/uL (1.20-3.40); #Monocytes 0.6 thou/uL (0.11-0.59); #Neutrophils 5.9 thou/uL (1.40-6.50); %Basophils 0.4 % (0.0-1.0); %Eosinophils 1.5 % (0.0-10.0); %Lymphocytes 20.4 % (21.0-51.0); %Monocytes 7.5 % (0.0-10.0); %Neutrophils 70.3 % (42.0-75.0); Hemoglobin 14.6 g/dL (12.0-16.0); Mean Corpuscular HGB CONC 34.8 g/dL (32.0-36.0); Mean Corpuscular Hemoglobin 35.1 pg (27.0-31.0); Mean Platelet Volume 8.8 fL (7.4-10.4); Platelet Count 170 10x3/uL (130-400); RBC Distribution Width 11.7 % (11.5-14.5); Red Blood Cell (RBC) Count 4.15 mill/uL (4.20-5.40); White Blood Cell (WBC) Count 8.4 10x3/uL (4.8-10.8)
[2022-08-27] MEDS: Thiamine HCl 200 MG/2 ML VIAL SLOW IVP SCH (05:38)
[2022-08-27 05:44] LABS: Anion Gap 17 mmol/L (10-20); BUN (Urea Nitrogen) 6 mg/dL (9.8-20.1); Calc. Creatinine Clearance 44 mL/min (70-130); Calcium 9.4 mg/dL (7.8-10.44); Carbon Dioxide 21 mmol/L (23-31); Chloride 101 mmol/L (98-107); Estimated GFR 88; Glucose 83 mg/dL (83-110); Magnesium 3.6 mg/dL (1.6-2.6); Potassium 3.5 mmol/L (3.5-5.1); Sodium 135 mmol/L (136-145)
[2022-08-27 05:47] LABS: Troponin I 0.015 ng/mL (< 0.028)
[2022-08-27] MEDS: Folic Acid 1 MG TAB PO SCH (08:46)
[2022-08-27] MEDS: Polyethylene Glycol 3350 17 GM Packet PO SCH (08:46)
[2022-08-27] MEDS: Cyanocobalamin (Vitamin B-12) 1,000 MCG TAB PO SCH (08:47)
[2022-08-27] MEDS: Cholecalciferol 1,000 UNITS (25 MCG) TAB PO SCH (08:47)
[2022-08-27] MEDS: Multivit, Therapeutic 1 TAB PO SCH (08:47)
[2022-08-27] MEDS: Diltiazem HCl SR 60 mg Capsule PO SCH ×2 (08:47→20:45)
[2022-08-27] MEDS: Senokot S 8.6-50 MG TAB PO SCH ×2 (08:47→20:46)
[2022-08-27] MEDS ORDERED: Apixaban 5 MG TAB PO SCH (09:00)
[2022-08-27] MEDS ORDERED: Diltiazem HCl SR 60 mg Capsule PO SCH (09:00)
[2022-08-27] MEDS ORDERED: Apixaban 2.5 MG TAB PO SCH (09:00)
[2022-08-27] MEDS ORDERED: Folic Acid 1 MG TAB PO SCH (09:00)
[2022-08-27] MEDS: Atorvastatin Calcium 10 MG TAB PO SCH (20:45)
[2022-08-27] MEDS: Acetaminophen 325 MG TAB PO PRN (20:46)
[2022-08-28] MEDS ORDERED: Lorazepam 1 MG TAB PO PRN (01:45)
[2022-08-28 04:34] LABS: #Eosinphils 0.2 thou/uL (0.0-0.7); #Lymphocytes 2.2 thou/uL (1.20-3.40); #Monocytes 0.7 thou/uL (0.11-0.59); #Neutrophils 6.4 thou/uL (1.40-6.50); %Basophils 0.5 % (0.0-1.0); %Eosinophils 2.6 % (0.0-10.0); %Lymphocytes 22.9 % (21.0-51.0); %Monocytes 7.3 % (0.0-10.0); %Neutrophils 66.8 % (42.0-75.0); Hemoglobin 13.1 g/dL (12.0-16.0); Mean Corpuscular HGB CONC 35.5 g/dL (32.0-36.0); Mean Corpuscular Hemoglobin 35.5 pg (27.0-31.0); Mean Corpuscular Volume 99.8 fl (78.0-98.0); Mean Platelet Volume 8.5 fL (7.4-10.4); Platelet Count 158 10x3/uL (130-400); RBC Distribution Width 11.6 % (11.5-14.5); White Blood Cell (WBC) Count 9.6 10x3/uL (4.8-10.8)
[2022-08-28 05:03] LABS: Anion Gap 13 mmol/L (10-20); BUN (Urea Nitrogen) 10 mg/dL (9.8-20.1); Calc. Creatinine Clearance 36 mL/min (70-130); Calcium 8.7 mg/dL (7.8-10.44); Carbon Dioxide 24 mmol/L (23-31); Chloride 99 mmol/L (98-107); Estimated GFR 72; Glucose 95 mg/dL (83-110); Magnesium 1.9 mg/dL (1.6-2.6); Potassium 3.7 mmol/L (3.5-5.1); Sodium 132 mmol/L (136-145)
[2022-08-28] MEDS: Thiamine HCl 200 MG/2 ML VIAL SLOW IVP SCH (05:48)
[2022-08-28] MEDS ORDERED: Magnesium 2 GM/50 ML(in water) 2 GM in Premix Bag 1 BAG IVPB SCH (08:00)
[2022-08-28] MEDS: Cholecalciferol 1,000 UNITS (25 MCG) TAB PO SCH (09:39)
[2022-08-28] MEDS: Senokot S 8.6-50 MG TAB PO SCH ×2 (09:40→20:39)
[2022-08-28] MEDS: Multivit, Therapeutic 1 TAB PO SCH (09:40)
[2022-08-28] MEDS: Folic Acid 1 MG TAB PO SCH (09:40)
[2022-08-28] MEDS: Polyethylene Glycol 3350 17 GM Packet PO SCH (10:04)
[2022-08-28] MEDS: Cyanocobalamin (Vitamin B-12) 1,000 MCG TAB PO SCH (10:04)
[2022-08-28] MEDS ORDERED: Heparin 10,000 UNITS/ 10 ML VIAL ONE (10:08)
[2022-08-28] MEDS ORDERED: Lidocaine 1% (PF) 30 ML VIAL ONE (10:08)
[2022-08-28] MEDS ORDERED: Isoproterenol 0.2 MG/1 ML AMP ONE (10:08)
[2022-08-28] MEDS ORDERED: Propofol 1,000 MG/100 ML VIAL IV ONE (12:12)
[2022-08-28] MEDS ORDERED: Midazolam HCl 2 mg/2 ml Vial ONE (12:12)
[2022-08-28] MEDS ORDERED: PROPOFOL 200 MG/20 ML VIAL ONE (12:24)
[2022-08-28] MEDS ORDERED: Promethazine HCl 25 MG/ML VIAL IM PRN (14:11)
[2022-08-28] MEDS ORDERED: Ondansetron HCl/PF 4 MG/2 ML Vial IVP PRN (14:11)
[2022-08-28 15:15] VITALS: BMI 19.0
[2022-08-28] MEDS: Atorvastatin Calcium 10 MG TAB PO SCH (20:39)
[2022-08-28] MEDS: Acetaminophen 325 MG TAB PO PRN (20:40)
[2022-08-29] MEDS ORDERED: Lorazepam 1 MG TAB PO PRN (01:45)
[2022-08-29 04:52] LABS: #Basophils 0.1 thou/uL (0.0-0.2); #Eosinphils 0.5 thou/uL (0.0-0.7); #Lymphocytes 1.8 thou/uL (1.20-3.40); #Monocytes 0.6 thou/uL (0.11-0.59); #Neutrophils 5.1 thou/uL (1.40-6.50); %Basophils 0.8 % (0.0-1.0); %Eosinophils 6.1 % (0.0-10.0); %Lymphocytes 22.2 % (21.0-51.0); %Monocytes 7.7 % (0.0-10.0); %Neutrophils 63.2 % (42.0-75.0); Hemoglobin 12.8 g/dL (12.0-16.0); Mean Corpuscular HGB CONC 33.8 g/dL (32.0-36.0); Mean Corpuscular Hemoglobin 34.5 pg (27.0-31.0); Mean Platelet Volume 8.7 fL (7.4-10.4); Platelet Count 164 10x3/uL (130-400); RBC Distribution Width 11.7 % (11.5-14.5); Red Blood Cell (RBC) Count 3.71 mill/uL (4.20-5.40)
[2022-08-29 05:20] LABS: Anion Gap 11 mmol/L (10-20); BUN (Urea Nitrogen) 9 mg/dL (9.8-20.1); Calc. Creatinine Clearance 35 mL/min (70-130); Calcium 8.6 mg/dL (7.8-10.44); Carbon Dioxide 24 mmol/L (23-31); Chloride 105 mmol/L (98-107); Estimated GFR 67; Glucose 88 mg/dL (83-110); Magnesium 2.2 mg/dL (1.6-2.6); Potassium 3.6 mmol/L (3.5-5.1); Sodium 136 mmol/L (136-145)
[2022-08-29] MEDS: Thiamine HCl 200 MG/2 ML VIAL SLOW IVP SCH (06:00)
[2022-08-29] MEDS: Cholecalciferol 1,000 UNITS (25 MCG) TAB PO SCH (08:58)
[2022-08-29] MEDS: Folic Acid 1 MG TAB PO SCH (08:58)
[2022-08-29] MEDS: Senokot S 8.6-50 MG TAB PO SCH (08:58)
[2022-08-29] MEDS: Cyanocobalamin (Vitamin B-12) 1,000 MCG TAB PO SCH (08:58)
[2022-08-29] MEDS: Multivit, Therapeutic 1 TAB PO SCH (08:58)
[2022-08-29] MEDS: Polyethylene Glycol 3350 17 GM Packet PO SCH (08:59)
[2022-08-29 11:22] VITALS: BP 168/71; TEMP 97.2
[2022-08-30] MEDS ORDERED: Lorazepam 0.5 MG TAB PO PRN (01:45)
[2022-08-30] MEDS ORDERED: Thiamine 100 MG TAB PO SCH (06:00)
== END 2022-08-29 13:20 | disposition home or self-care (01) | DRG 274 ==
LOC: ERS 20:05 → 2NO 08-27 00:11 → OBSVTOIN 08-28 17:02
PROVIDERS: ADMIT Internal Medicine; ATTEND Family Medicine
PROC: 4A023FZ Measurement of Cardiac Rhythm, Percutaneous Approach (ICD-10-PCS; principal; 2022-08-28)
PROC: 02583ZZ Destruction of Conduction Mechanism, Percutaneous Approach (ICD-10-PCS; 2022-08-28)
PROC: 4A0234Z Measurement of Cardiac Electrical Activity, Percutaneous Approach (ICD-10-PCS; 2022-08-28)
PROC: 02K83ZZ Map Conduction Mechanism, Percutaneous Approach (ICD-10-PCS; 2022-08-28)
DX: I47.1 Supraventricular tachycardia (principal); E87.1 Hypo-osmolality and hyponatremia; I50.32 Chronic diastolic (congestive) heart failure; I48.20 Chronic atrial fibrillation, unspecified; E78.5 Hyperlipidemia, unspecified; F10.10 Alcohol abuse, uncomplicated; F17.210 Nicotine dependence, cigarettes, uncomplicated; R79.89 Other specified abnormal findings of blood chemistry; D75.89 Other specified diseases of blood and blood-forming organs; K59.09 Other constipation; I11.0 Hypertensive heart disease with heart failure; M25.511 Pain in right shoulder; Z86.711 Personal history of pulmonary embolism; Z79.899 Other long term (current) drug therapy; Z83.6 Family history of other diseases of the respiratory system; Z91.81 History of falling; Z71.41 Alcohol abuse counseling and surveillance of alcoholic; Z90.49 Acquired absence of other specified parts of digestive tract; Z20.822 Contact with and (suspected) exposure to COVID-19; I49.1 Atrial premature depolarization; I48.92 Unspecified atrial flutter; K59.00 Constipation, unspecified; Z98.890 Other specified postprocedural states
CPT/HCPCS: 36415; 36416; 70450; 71260; 72125; 74177; 80048; 80053; 80307; 83735; 83880; 84484; 85025; 93005; 93010; 93306; 93623; 93653; 96365; 96375; 96376; C1730; C1732; C1760; C1894; C2630; G0378; J1644; J2001; J2250; J2704; J3411; J3475; Q9967; U0003; U0005

== ENCOUNTER 2023-07-26 14:43 | Emergency (ER) | payer MEDICARE, OTHER ==
[2023-07-26 15:19] LABS: Bacteria/HPF 4+ HPF (None Seen); Bilirubin Negative (Negative); Blood, Urine Negative (Negative); CAUTI Indications for Culture Dysuria,urgency,freq; Clarity Clear (Clear); Glucose, Urine (Dipstick) Normal (Negative); Ketone, Urine Negative (Negative); Leukocyte 250 Leu/uL (Negative); Nitrite Negative (Negative); Protein, Urine (Dipstick) Negative (Neg-Trace); RBC/HPF 0-3 HPF (0-3); Specific Gravity, Urine 1.003 (1.002-1.036); Squamous Epithelial None Seen HPF (0-3); Urobilinogen Normal mg/dL (Less than 2); pH, Urine 6.5 (5.0-9.0)
[2023-07-26 15:20] LABS: Urine Culture Reflex No No
[2023-07-26 15:52] LABS: #Eosinphils 0.1 thou/uL (0.0-0.7); #Monocytes 0.5 thou/uL (0.11-0.59); #Neutrophils 5.1 thou/uL (1.40-6.50); %Basophils 0.5 % (0.0-1.0); %Eosinophils 1.5 % (0.0-10.0); %Lymphocytes 21.1 % (21.0-51.0); %Neutrophils 69.6 % (42.0-75.0); Hematocrit 41.3 % (36.0-47.0); Hemoglobin 14.2 g/dL (12.0-16.0); Mean Corpuscular HGB CONC 34.4 g/dL (32.0-36.0); Mean Corpuscular Volume 98.8 fl (78.0-98.0); Mean Platelet Volume 10.9 fL (7.4-10.4); Platelet Count 175 10x3/uL (130-400); RBC Distribution Width 12.9 % (11.5-14.5); Red Blood Cell (RBC) Count 4.18 mill/uL (4.20-5.40); White Blood Cell (WBC) Count 7.4 10x3/uL (4.8-10.8)
[2023-07-26 16:15] LABS: ALT (SGPT) 15 U/L (8-55); AST (SGOT) 26 U/L (5-34); Albumin 4.4 g/dL (3.4-4.8); Alkaline Phosphatase 56 U/L (40-110); Anion Gap 13 mmol/L (10-20); BUN (Urea Nitrogen) 7 mg/dL (9.8-20.1); Bilirubin, Total 1.3 mg/dL (0.2-1.2); CK (CPK) 46 U/L (29-168); Calc. Creatinine Clearance 0 mL/min (70-130); Calcium 9.4 mg/dL (7.8-10.44); Carbon Dioxide 27 mmol/L (23-31); Chloride 96 mmol/L (98-107); Estimated GFR 76; Globulin 2.7 g/dL (2.4-3.5); Glucose 87 mg/dL (83-110); Lipase 41 U/L (8-78); Magnesium 1.9 mg/dL (1.6-2.6); Potassium 3.6 mmol/L (3.5-5.1); Protein, Total 7.1 g/dL (5.8-8.1); Sodium 132 mmol/L (136-145)
[2023-07-26 16:18] LABS: Troponin I Less than 0.010 ng/mL (< 0.028)
== END 2023-07-26 17:38 | disposition home or self-care (01) ==
LOC: ERS 14:43
DX: R53.1 Weakness (principal); N39.0 Urinary tract infection, site not specified; K04.7 Periapical abscess without sinus; I48.91 Unspecified atrial fibrillation; I48.92 Unspecified atrial flutter; I10 Essential (primary) hypertension; E78.5 Hyperlipidemia, unspecified; F17.220 Nicotine dependence, chewing tobacco, uncomplicated; Z79.01 Long term (current) use of anticoagulants; Z79.899 Other long term (current) drug therapy
CPT/HCPCS: 36415; 70450; 71045; 72072; 80053; 81001; 82550; 83690; 83735; 83880; 84484; 85025; 93005

== ENCOUNTER 2024-08-20 14:39 | Inpatient (IN) | payer MEDICARE, OTHER ==
[2024-08-20] MEDS ORDERED: Ondansetron PF 4 MG/2 ML Vial ONE (15:40)
[2024-08-20] MEDS ORDERED: Morphine 4 MG/ML VIAL ONE (15:43)
[2024-08-20 16:19] LABS: #Basophils 0.03 10x3/uL (0.0-0.2); #Eosinophils Less than 0.03 10x3/uL (0.0-0.7); %Basophils 0.2 % (0.0-1.0); %Lymphocytes 7.5 % (21.0-51.0); %Monocytes 3.7 % (0.0-10.0); %Neutrophils 88.2 % (42.0-75.0); Hematocrit 34.4 % (36.0-47.0); Hemoglobin 12.1 g/dL (12.0-16.0); Mean Corpuscular HGB CONC 35.2 g/dL (32.0-36.0); Mean Corpuscular Hemoglobin 33.1 pg (27.0-31.0); Mean Platelet Volume 11.4 fL (7.4-10.4); Platelet Count 128 10x3/uL (130-400); RBC Distribution Width 12.8 % (11.5-14.5); Red Blood Cell (RBC) Count 3.66 mill/uL (4.20-5.40)
[2024-08-20 16:24] LABS: ALT (SGPT) 17 U/L (Less than 34); AST (SGOT) 34 U/L (11-34); Albumin 3.9 g/dL (3.1-4.5); Alkaline Phosphatase 59 U/L (40-110); Anion Gap 18 mmol/L (10-20); BUN (Urea Nitrogen) 12 mg/dL (9.8-20.1); Bilirubin, Total 1.2 mg/dL (0.3-1.2); Calc. Creatinine Clearance 0 mL/min (70-130); Calcium 9.4 mg/dL (7.8-10.44); Carbon Dioxide 22 mmol/L (23-31); Chloride 100 mmol/L (98-107); Estimated GFR 61; Globulin 3.1 g/dL (2.4-3.5); Glucose 121 mg/dL (83-110); Potassium 3.4 mmol/L (3.5-5.1); Sodium 137 mmol/L (136-145)
[2024-08-20 16:45] LABS: Burr Cells MODERATE= 6-15 cells HPF (0-1); Macrocytosis SLIGHT = 6-15 cells HPF (0-5); Ovalocytes SLIGHT = 2-5 cells HPF (0-1); Platelet Adequacy Comment Platelets Decreased; Tear Drops SLIGHT = 2-5 cells HPF (0-1)
[2024-08-20] MEDS ORDERED: Acetaminophen 325 MG TAB PO PRN (16:47)
[2024-08-20] MEDS ORDERED: [UNRECOGNIZED DRUG - REMARK] FS SCH (17:00)
[2024-08-20] MEDS: dilTIAZem ER 60 MG CAP PO SCH (22:26)
[2024-08-20] MEDS: Atorvastatin Calcium 10 MG TAB PO SCH (22:30)
[2024-08-20] MEDS: Morphine 2 MG/ML VIAL SLOW IVP PRN (22:34)
[2024-08-21 03:14] VITALS: BMI 18.1
[2024-08-21] MEDS ORDERED: CEFAZOLIN 2 GM in Sodium Chloride 0.9% 100 ML IVPB SCH (07:15)
[2024-08-21] MEDS ORDERED: Lorazepam 0.5 MG TAB PO PRN (08:57)
[2024-08-21] MEDS ORDERED: Electrolyte Replacement Protocol 1 EACH FS SCH (09:00)
[2024-08-21] MEDS ORDERED: Electrolyte Replacement Protocol FS PRN (10:15)
[2024-08-21 10:30] LABS: Phosphorus 3.2 mg/dL (2.5-4.5)
[2024-08-21 10:31] LABS: Magnesium 1.9 mg/dL (1.6-2.6)
[2024-08-21] MEDS ORDERED: Lidocaine 2% PF 5 ML VIAL ONE (10:45)
[2024-08-21] MEDS ORDERED: Rocuronium Bromide 10 MG/ML (10ML VIAL) ONE (10:45)
[2024-08-21] MEDS ORDERED: Dexamethasone 20 MG/5 ML VIAL ONE (10:45)
[2024-08-21] MEDS ORDERED: Ondansetron PF 4 MG/2 ML Vial ONE (10:45)
[2024-08-21] MEDS ORDERED: PHENYLEPHRINE-NS 100 MCG/ML 10 ML SYRINGE ONE (10:45)
[2024-08-21] MEDS ORDERED: fentaNYL PF 100 MCG/2 ML SYRINGE ONE (10:45)
[2024-08-21] MEDS ORDERED: PROPOFOL 20 ML ONE (10:45)
[2024-08-21] MEDS ORDERED: CEFAZOLIN 2 GM VIAL ONE (10:51)
[2024-08-21] MEDS ORDERED: ePHEDrine Sulfate 50 MG/10 ML VIAL ONE (11:17)
[2024-08-21 11:19] VITALS: BMI 18.1
[2024-08-21] MEDS ORDERED: Ropivacaine 0.5% HCl/PF (150 MG/30 ML VIAL) ONE (11:25)
[2024-08-21] MEDS ORDERED: Ropivacaine 2% HCl/PF (20 MG/10 ML VIAL) ONE (11:25)
[2024-08-21] MEDS ORDERED: Glycopyrrolate 0.2 MG/ML 5 ML SYRINGE ONE (11:25)
[2024-08-21] MEDS ORDERED: SUGAMMADEX SODIUM 200 MG/2 ML VIAL ONE (11:31)
[2024-08-21] MEDS: FLU (Fluad Triv) TS24-25 (65UP)/MF59C/PF 45 MCG/0.5 ML Syringe IM ONE (15:32)
[2024-08-21] MEDS: Folic Acid 1 MG TAB PO SCH (15:33)
[2024-08-21] MEDS: Potassium Chloride 20 MEQ in Premix 1 BAG IVPB SCH (15:33)
[2024-08-21] MEDS: CEFAZOLIN 2 GM in Sodium Chloride 0.9% 100 ML IVPB SCH (15:34)
[2024-08-21] MEDS: Multivit, Therapeutic 1 TAB PO SCH (15:37)
[2024-08-21 18:40] LABS: Potassium 3.8 mmol/L (3.5-5.1)
[2024-08-21] MEDS: Magnesium 2 GM/50 ML(in water) 2 GM in Premix 1 BAG IVPB SCH (21:10)
[2024-08-22] MEDS: TETANUS, DIPHTHERIA TOX,ADULT (TDVAX) 0.5 ML VIAL IM ONE (09:37)
[2024-08-22] MEDS: traMADol HCl 50 MG TAB PO PRN (11:47)
[2024-08-24 15:54] VITALS: BP 154/65; TEMP 97.3
== END 2024-08-24 17:45 | DRG 483 ==
LOC: ERS 14:39 → SURG A 16:47
PROVIDERS: ADMIT Orthopaedic Surgery; ATTEND Orthopaedic Surgery
PROC: 0RRK00Z Replacement of Left Shoulder Joint with Reverse Ball and Socket Synthetic Substitute, Open Approach (ICD-10-PCS; principal; 2024-08-20)
PROC: 3E033XZ Introduction of Vasopressor into Peripheral Vein, Percutaneous Approach (ICD-10-PCS; 2024-08-20)
DX: S42.291A Other displaced fracture of upper end of right humerus, initial encounter for closed fracture (principal); I47.10 Supraventricular tachycardia, unspecified; I50.32 Chronic diastolic (congestive) heart failure; S09.8XXA Other specified injuries of head, initial encounter; S62.646A Nondisplaced fracture of proximal phalanx of right little finger, initial encounter for closed fracture; I48.91 Unspecified atrial fibrillation; E78.5 Hyperlipidemia, unspecified; I11.0 Hypertensive heart disease with heart failure; R29.6 Repeated falls; F10.10 Alcohol abuse, uncomplicated; R53.1 Weakness; Z79.01 Long term (current) use of anticoagulants; Z79.899 Other long term (current) drug therapy; Z90.49 Acquired absence of other specified parts of digestive tract; Z60.2 Problems related to living alone; W01.198A Fall on same level from slipping, tripping and stumbling with subsequent striking against other object, initial encounter
CPT/HCPCS: 36415; 70450; 71045; 72125; 80053; 83735; 84100; 84132; 85025; 90653; 93005; 96374; 96375; C1713; C1776; J1100; J2270; J2272; J2405; J2704; J2795; J3475; J3480